=== PATIENT | female | born 2000 | race Caucasian/White ===

== ENCOUNTER 2022-01-23 23:47 | Inpatient (IN) | payer BC, SELFPAY ==
[2022-01-24] MEDS ORDERED: Ondansetron PF 4 MG/2 ML Vial ONE (00:23)
[2022-01-24 00:40] LABS: BHCG - Serum Negative (NEGATIVE); Pregs Control Background? CLEAR/WHITE (CLR/WHITE); Pregs Control Bar Appear? YES (CONTROL BAR)
[2022-01-24 00:47] LABS: ALT (SGPT) 42 U/L (8-55); AST (SGOT) 41 U/L (5-30); Alkaline Phosphatase 110 U/L (40-100); Anion Gap 34 mmol/L (10-20); BUN (Urea Nitrogen) 31 mg/dL (8.4-21.0); Bilirubin, Total 0.4 mg/dL (0.2-1.2); CK (CPK) 197 U/L (29-168); Calc. Creatinine Clearance 0 mL/min (70-130); Calcium 10.3 mg/dL (7.8-10.44); Carbon Dioxide 11 mmol/L (22-29); Chloride 92 mmol/L (98-107); Estimated GFR 46; Globulin 4.4 g/dL (2.4-3.5); Magnesium 2.3 mg/dL (1.7-2.2); Potassium 5.2 mmol/L (3.5-5.1); Protein, Total 9.4 g/dL (6.0-8.3); Sodium 132 mmol/L (136-145)
[2022-01-24 00:49] LABS: Glucose 670 mg/dL (70-105)
[2022-01-24 00:53] LABS: Actual Bicarbonate (HCO3v) 10 mEq/L (22-28); Base Excess -18.5 mEq/L (-2.0 to +3.0); Calcium, Ionized (venous) 1.17 mmol/L (1.16-1.32); Chloride (VBG) 94 mmol/L (98-106); Critical Notified By: CP.PH; Hemoglobin (Hb) 14.2 g/dL (11.7-15.5); Potassium (VBG) 5.13 mmol/L (3.70-5.30); Puncture Site Other Site; Sodium 133.3 mmol/L (133-146); pH (venous) 7.11 (7.32-7.43)
[2022-01-24 00:57] LABS: #Basophils 0.2 10x3/uL (0.0-0.2); #Eosinphils 0.1 10x3/uL (0.0-0.5); #Monocytes 1.1 10x3/uL (0.0-1.1); #Neutrophils 12.4 10x3/uL (1.5-8.4); %Basophils 0.9 % (0.0-2.0); %Eosinophils 0.6 % (0.0-6.0); %Lymphocytes 16.9 % (18.0-47.0); %Monocytes 6.2 % (0.0-10.0); %Neutrophils 72.3 % (40.0-75.0); Hemoglobin 14.2 g/dL (12.0-15.5); Mean Corpuscular HGB CONC 32.6 g/dL (32.0-36.0); Mean Corpuscular Hemoglobin 32.6 pg (27.0-33.0); Mean Corpuscular Volume 100.2 fl (81.6-98.3); Mean Platelet Volume 11.8 fl (7.4-10.4); Platelet Count 335 10x3/uL (150-450); RBC Distribution Width 11.8 % (11.5-14.5); Red Blood Cell (RBC) Count 4.35 10x6/uL (3.90-5.03); White Blood Cell (WBC) Count 17.2 10x3/uL (3.5-10.5)
[2022-01-24] MEDS ORDERED: INSULIN REGULAR IN 0.9 % NACL 100 UNIT/100 ML BAG ONE (01:22)
[2022-01-24] MEDS ORDERED: Insulin Regular 300 UNITS/3 ML VIAL ONE (01:22)
[2022-01-24] MEDS ORDERED: Insulin Regular 300 UNITS/3 ML VIAL IVP SCH (01:30)
[2022-01-24] MEDS ORDERED: Sodium Chloride 0.9% 1,000 ML IV SCH (01:30)
[2022-01-24] MEDS ORDERED: Ondansetron PF 4 MG/2 ML Vial IVP SCH (01:30)
[2022-01-24] MEDS ORDERED: INSULIN REGULAR IN 0.9 % NACL 100 UNIT in Premix Bag 1 BAG IVPB SCH ×2 (01:30→02:30)
[2022-01-24 02:05] LABS: Bilirubin Neg (Negative); Blood, Urine Negative (Negative); Clarity Clear (Clear); Glucose, Urine (Dipstick) >=1000 mg/dL (Negative); Ketone, Urine 150 mg/dL (Negative); Leukocyte Negative (Negative); Nitrite Negative (Negative); Protein, Urine (Dipstick) 15 mg/dl (Neg-Trace); Urobilinogen Normal mg/dL (Less than 2)
[2022-01-24] MEDS ORDERED: Guaifenesin DM 100-10/5 ML UDCUP PO PRN (02:29)
[2022-01-24] MEDS ORDERED: Zolpidem Tartrate 5 MG TAB PO PRN (02:29)
[2022-01-24] MEDS ORDERED: Senokot S 8.6-50 MG TAB PO PRN (02:29)
[2022-01-24] MEDS ORDERED: Acetaminophen 325 MG TAB PO PRN (02:29)
[2022-01-24] MEDS ORDERED: Calcium Carbonate 500 MG ChewTAB PO PRN (02:29)
[2022-01-24 02:31] LABS: SARS-CoV-2 NAA Rapid Test Not Detected (NotDetected)
[2022-01-24] MEDS ORDERED: Sodium Chloride 0.45% 500 ML IV SCH (02:45)
[2022-01-24 04:23] VITALS: BMI 22.4
[2022-01-24] MEDS: Dextrose 5%-Lactated Ringers 1,000 ML IV SCH ×2 (04:49→10:57)
[2022-01-24] MEDS: Sodium Chloride 0.45% 1,000 ML IV SCH ×2 (04:50→10:58)
[2022-01-24] MEDS ORDERED: Dextrose 5 %-0.45 % NaCl 1,000 ML IV PRN (05:00)
[2022-01-24] MEDS ORDERED: Sodium Chloride 0.9% 1,000 ML IV PRN ×4 (05:00)
[2022-01-24] MEDS ORDERED: Dextrose 5% in Water 1,000 ML IV PRN (05:00)
[2022-01-24] MEDS ORDERED: Dextrose 50% Abboject 50 ML SYRINGE SLOW IVP PRN (05:00)
[2022-01-24] MEDS ORDERED: NS 0.9% w/ 20 MEQ KCL 1,000 ML/1,000 ML BAG IV PRN ×2 (05:00)
[2022-01-24] MEDS ORDERED: Electrolyte Replacement Protocol FS PRN (05:15)
[2022-01-24] MEDS: Famotidine/PF 20 mg/2ml Vial SLOW IVP SCH ×2 (05:26→15:55)
[2022-01-24 05:31] LABS: Anion Gap 22 mmol/L (10-20); BUN (Urea Nitrogen) 23 mg/dL (8.4-21.0); CK (CPK) 150 U/L (29-168); Calc. Creatinine Clearance 106 mL/min (70-130); Calcium 8.1 mg/dL (7.8-10.44); Carbon Dioxide 12 mmol/L (22-29); Chloride 106 mmol/L (98-107); Estimated GFR 85; Glucose 190 mg/dL (70-105); Magnesium 1.9 mg/dL (1.7-2.2); Phosphorus 3.6 mg/dL (2.3-4.7); Potassium 4.5 mmol/L (3.5-5.1); Sodium 135 mmol/L (136-145)
[2022-01-24] MEDS: D5 1/2 NS w/20 mEq KCL 1,000 ML IV PRN ×3 (05:35→13:46)
[2022-01-24] MEDS ORDERED: Magnesium 2 GM/50 ML(in water) 2 GM in Premix Bag 1 BAG IVPB SCH ×2 (05:45→20:45)
[2022-01-24] MEDS: Ondansetron PF 4 MG/2 ML Vial IVP PRN (08:32)
[2022-01-24] MEDS: Enoxaparin Sodium 40 MG/0.4 ML SYRINGE SC SCH ×2 (08:32→11:04)
[2022-01-24] MEDS ORDERED: AMOXicillin 250 MG CAP PO SCH (09:00)
[2022-01-24 09:16] LABS: Anion Gap 17 mmol/L (10-20); BUN (Urea Nitrogen) 16 mg/dL (8.4-21.0); CK (CPK) 137 U/L (29-168); Calc. Creatinine Clearance 112 mL/min (70-130); Calcium 7.9 mg/dL (7.8-10.44); Carbon Dioxide 14 mmol/L (22-29); Chloride 109 mmol/L (98-107); Estimated GFR 91; Glucose 182 mg/dL (70-105); Phosphorus 3.3 mg/dL (2.3-4.7); Potassium 4.4 mmol/L (3.5-5.1); Sodium 136 mmol/L (136-145)
[2022-01-24 09:30] LABS: Magnesium 2.5 mg/dL (1.7-2.2)
[2022-01-24 11:20] LABS: Hemoglobin A1c 8.7 % (4.0-6.0)
[2022-01-24 13:33] LABS: Anion Gap 12 mmol/L (10-20); BUN (Urea Nitrogen) 13 mg/dL (8.4-21.0); Calc. Creatinine Clearance 117 mL/min (70-130); Calcium 8.2 mg/dL (7.8-10.44); Carbon Dioxide 18 mmol/L (22-29); Chloride 108 mmol/L (98-107); Estimated GFR 96; Glucose 159 mg/dL (70-105); Magnesium 2.1 mg/dL (1.7-2.2); Phosphorus 2.8 mg/dL (2.3-4.7); Potassium 4.1 mmol/L (3.5-5.1); Sodium 134 mmol/L (136-145)
[2022-01-24] MEDS: AMOXicillin 250 MG CAP PO SCH (17:05)
[2022-01-24] MEDS: HumaLOG 300 UNITS/3 ML VIAL SC PRN ×2 (17:11→21:59)
[2022-01-24 18:05] LABS: Anion Gap 11 mmol/L (10-20); BUN (Urea Nitrogen) 12 mg/dL (8.4-21.0); Calc. Creatinine Clearance 91 mL/min (70-130); Calcium 8.4 mg/dL (7.8-10.44); Carbon Dioxide 20 mmol/L (22-29); Chloride 106 mmol/L (98-107); Estimated GFR 71; Glucose 362 mg/dL (70-105); Phosphorus 2.4 mg/dL (2.3-4.7); Potassium 4.2 mmol/L (3.5-5.1); Sodium 133 mmol/L (136-145)
[2022-01-24 22:12] LABS: Anion Gap 13 mmol/L (10-20); BUN (Urea Nitrogen) 13 mg/dL (8.4-21.0); Calc. Creatinine Clearance 87 mL/min (70-130); Carbon Dioxide 22 mmol/L (22-29); Chloride 102 mmol/L (98-107); Estimated GFR 67; Glucose 417 mg/dL (70-105); Magnesium 1.9 mg/dL (1.7-2.2); Phosphorus 2.3 mg/dL (2.3-4.7); Potassium 4.1 mmol/L (3.5-5.1); Sodium 133 mmol/L (136-145)
[2022-01-25] MEDS ORDERED: Dextrose 50% Abboject 50 ML SYRINGE SLOW IVP PRN (03:07)
[2022-01-25] MEDS ORDERED: Dextrose 5% in Water 1,000 ML IV PRN (03:07)
[2022-01-25] MEDS ORDERED: Lantus 1000 UNITS/10 ML VIAL SC SCH ×2 (03:15→21:00)
[2022-01-25] MEDS: AMOXicillin 250 MG CAP PO SCH ×3 (03:44→17:57)
[2022-01-25] MEDS: HumaLOG 300 UNITS/3 ML VIAL SC PRN ×2 (04:23→08:21)
[2022-01-25] MEDS: Ondansetron PF 4 MG/2 ML Vial IVP PRN (04:29)
[2022-01-25 04:32] LABS: #Eosinphils 0.2 10x3/uL (0.0-0.5); #Monocytes 0.6 10x3/uL (0.0-1.1); #Neutrophils 9.3 10x3/uL (1.5-8.4); %Basophils 0.3 % (0.0-2.0); %Eosinophils 1.3 % (0.0-6.0); %Lymphocytes 19.5 % (18.0-47.0); %Monocytes 4.5 % (0.0-10.0); %Neutrophils 72.9 % (40.0-75.0); Hemoglobin 12.6 g/dL (12.0-15.5); Mean Corpuscular HGB CONC 34.1 g/dL (32.0-36.0); Mean Corpuscular Hemoglobin 32.9 pg (27.0-33.0); Mean Corpuscular Volume 96.3 fl (81.6-98.3); Mean Platelet Volume 11.6 fl (7.4-10.4); Platelet Count 241 10x3/uL (150-450); RBC Distribution Width 12.5 % (11.5-14.5); Red Blood Cell (RBC) Count 3.83 10x6/uL (3.90-5.03); White Blood Cell (WBC) Count 12.8 10x3/uL (3.5-10.5)
[2022-01-25 04:40] LABS: Anion Gap 20 mmol/L (10-20); BUN (Urea Nitrogen) 14 mg/dL (8.4-21.0); CK (CPK) 97 U/L (29-168); Calc. Creatinine Clearance 89 mL/min (70-130); Calcium 8.7 mg/dL (7.8-10.44); Carbon Dioxide 17 mmol/L (22-29); Chloride 99 mmol/L (98-107); Estimated GFR 69; Glucose 499 mg/dL (70-105); Potassium 4.4 mmol/L (3.5-5.1); Sodium 132 mmol/L (136-145)
[2022-01-25] MEDS: Enoxaparin Sodium 40 MG/0.4 ML SYRINGE SC SCH (09:20)
[2022-01-25 12:54] LABS: Anion Gap 15 mmol/L (10-20); BUN (Urea Nitrogen) 11 mg/dL (8.4-21.0); Calc. Creatinine Clearance 103 mL/min (70-130); Calcium 9.3 mg/dL (7.8-10.44); Carbon Dioxide 22 mmol/L (22-29); Chloride 104 mmol/L (98-107); Estimated GFR 82; Glucose 147 mg/dL (70-105); Potassium 3.5 mmol/L (3.5-5.1); Sodium 137 mmol/L (136-145)
[2022-01-25] MEDS ORDERED: Potassium Chloride 20 MEQ TAB PO SCH (13:30)
[2022-01-25 19:50] LABS: Chloride 106 mmol/L (98-107); Potassium 3.8 mmol/L (3.5-5.1); Sodium 141 mmol/L (136-145)
[2022-01-25 19:51] LABS: Anion Gap 14 mmol/L (10-20); BUN (Urea Nitrogen) 13 mg/dL (8.4-21.0); Calc. Creatinine Clearance 111 mL/min (70-130); Calcium 9.6 mg/dL (7.8-10.44); Carbon Dioxide 25 mmol/L (22-29); Estimated GFR 90; Glucose 60 mg/dL (70-105)
== END 2022-01-25 20:55 | disposition home or self-care (01) | DRG 919 ==
LOC: CSHERS 23:47 → CSHIMCU 01-24 04:15
PROVIDERS: ADMIT Student in an Organized Health Care Education/Training Program; ATTEND Internal Medicine
DX: T85.694A Other mechanical complication of insulin pump, initial encounter (principal); E10.10 Type 1 diabetes mellitus with ketoacidosis without coma; N17.9 Acute kidney failure, unspecified; R65.10 Systemic inflammatory response syndrome (SIRS) of non-infectious origin without acute organ dysfunction; E86.0 Dehydration; E87.5 Hyperkalemia; J02.0 Streptococcal pharyngitis; Z20.822 Contact with and (suspected) exposure to COVID-19; Y83.8 Other surgical procedures as the cause of abnormal reaction of the patient, or of later complication, without mention of misadventure at the time of the procedure; Z90.49 Acquired absence of other specified parts of digestive tract; Z98.890 Other specified postprocedural states
CPT/HCPCS: 36415; 36416; 80053; 81003; 82010; 82550; 82805; 83036; 83735; 84100; 84703; 85025; J1650; J1815; J2405; J3475; J3480; S0028; U0002